=== PATIENT | male | born 1940 | race Caucasian/White ===

== ENCOUNTER 2017-07-15 08:23 | Outpatient (RCR) | payer MEDICARE, BC ==
--- NOTE | 2017-05-01 14:35 | RAD ONC CONSULTATION ---
EVENT DATE: April 27, 2017 PRIMARY SITE AND HISTOPATHOLOGY Poorly differentiated adenocarcinoma of the prostate, Bowie 6, Bowie 7, Cornell 8 and Bowie 9 carcinoma all present. Tumor occupying seven of 12 core biopsy specimens. Predominant grade is Bowie 9 occupying at least 40% of the core biopsies. Tumor was in both right and left lobe. See below. Pre- biopsy PSA of 3.9 ng/mL. Biopsy date April 08, 2017. Stage T2c (visible asymmetry of the right seminal vesical on my review of the films, as well as a palpable induration suspicious for malignancy on rectal exam involving the right and left lobe greater than 50%. HISTORY OF PRESENT ILLNESS This is a 76-year-old gentleman who is seen accompanied by his spouse for discussion of therapeutic options for recently diagnosed prostate carcinoma. Patient was referred to the office by Dr. Shea for discussion today. According to the patient there is family history of prostate carcinoma. he has been monitoring his PSA with his providers for the last two years, as well as undergoing screening events for prostate cancer. He has noticed a change in voiding patterns with increased urinary urgency as well as occasional double voiding. During the oast six months he has noticed some mild pain at the beginning of urination. He was placed on a trial of antibiotics by Dr. Shea with no improvement. He typically voids q.2 hours during the day. Patient has mild lower back pain, but nothing persistent. Prior to this appointment he had a bone scan at [facility] which I reviewed today which was negative. Minor arthritic changes at L5 and the C-spine. CT of the abdomen and pelvis was obtained on April 20, 2017. No definitive lymphadenopathy and liver was unremarkable. No hydronephrosis. Incidental 1 mm nonobstructing calculus was noted in the lower pole of the right kidney. The prostate gland appeared moderately enlarged and irregular. Seminal vesicals were prominent. On my review of the films the right seminal vesical was more prominent than the left side. On rib films he had evidence of old bilateral rib fractures which were benign appearing. The patient is seen for discussion of therapeutic options. PAST MEDICAL HISTORY 1. COPD. 2. History of seizure disorder. 3. History of hypercholesterol. PAST SURGICAL HISTORY 1. Bilateral shoulder surgical repairs. 2. Prior back surgery. MEDICATIONS The patient was uncertain of his medications and we will call Pharmacy for a detailed list today. ALLERGIES None. SOCIAL HISTORY Patient is , accompanied by his . Nonsmoker. Does not drinking. Has a son age 56 and daughter age 53. FAMILY HISTORY Strong family history of coronary artery disease with his father dying of an CT at age 47. His mother lived to age 84. REVIEW OF SYSTEMS A 14-point review of systems notable for occasional dry eyes. He does have some urinary urgency and frequency with an AUA symptom score of 12. Nocturnal times three, sometimes four. He does recall that he has had a catheterization procedure in the past in the Urinary office. Mild decrease in energy. No significant chest pain. At times he has been told he had high blood pressure. Mild lower back pain at times. He does have some impairment of his memory at times and occasional dizziness. He states that he has seizures about once a month that last 30-60 seconds. He se[s Dr. Mcnamara in [place]. He has seen doctors at the [facility] in [place] about the seizure disorder in the past. 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 The patient is on CPAP for the last two to three years. PHYSICAL EXAMINATION GENERAL: A pleasant 76-year-old male of medium build. VITAL SIGNS: Weight 178. BP 120/76, O2 sat 96% on room air, respirations 14, pulse 61. LUNGS: Clear to auscultation bilaterally. HEART: Sounds regular with no appreciable murmur. ABDOMEN: Soft with no organomegaly. RECTAL: Exam was performed and the prostate is enlarged with palpable induration involving the left lobe as well as the right lobe of the gland. There is palpable induration and asymmetry of the gland which is highly irregular. EXTREMITIES: Reveal no edema or cyanosis. NEUROLOGIC: Exam is grossly intact. IMPRESSION This is a 76-year-old gentleman with a relatively low prostatic specific antigen , however, aa palpable abnormal prostate gland with high grade prostate malignancy bilaterally on ultrasound biopsies. The combination is associated with very undifferentiated malignancies which tend to produce the PSA at a lower rate as the cells are very immature. In running the typical nomogram from [facility] computer site, the probability of extracapsular extension is 67% for the features listed with the patient's malignancy, organ-confined disease 30%, lymph node involvement 11%, seminal vesical invasion 10%. We discussed multiple treatment options. He specifically wished to discuss the radiation options in terms of external beam radiotherapy and/or brachytherapy. I told the patient he would not be a candidate for brachytherapy alone, however , we have performed brachytherapy as part of a boost treatment for the Cornell 7 , 8, 9 and 10. Patients would benefit from androgen deprivation therapy concurrently with radiotherapy to maximize the probability of sustained tumor control. In randomized data from [place], the probability of sustained tumor control would be 75%. In larger series in the [place] to cause specific survival should be approximately 81%. In the ASCENDE-RT trial patient's with high risk disease were treated with a minimum of 12 months of ADT and radiotherapy which included external beam therapy plus brachytherapy. Six and a half relapse rate survival is 89%. RECOMMENDATIONS 1. I will phone in a prescription for Bicalutamide. Patient is instructed to take 50 mg q.day for 30 days. 2. Proceed with Lupron therapy at the end of this week. Patient hopes to go hunting next week so we will check later today with Dr. Shea's office to see if we can get the Lupron started earlier. 3. Proceed with targeting CT simulation on Wednesday of this week. 4. Start external beam radiotherapy in approximately four weeks. Proceed to radiation dose of 5000 to 5500 cGy. 5. Reassess at that juncture for brachytherapy option versus external beam radiation therapy boost. Both options would be category one recommendations. I outlined the treatment plan with the patient and his spouse. We reviewed potential acute late side effects and therapeutic alternatives. He would like to proceed with the above recommendation. All questions were answered to the his satisfaction over 90 minute consultation today. Baseline pretreatment PSA will be obtained as well in the morning. Thank you for the referral and opportunity to discuss options with Mr. Sharma and his spouse today. ILEANA
[~2017-07-15 08:23] MED LIST: ALE70 PO; ALF10 PO; ASA; ASC500 PO; ASCO-191 PO; ASCO-599 PO; ASP325 PO; ASPI-715 PO; ATOR20TA22 PO; B.AN1CAP2 PO; BEN20 PO; BENA1TAB48 PO; CALC500T76 PO; CEP500 PO; CHOL100052 PO; CITA-137 PO; CLO75 PO; DEXL60CA6 PO; DOCU-416 PO; DUT0.5 PO; ERG400 PO; ERGO400T9 PO; EZE10 PO; FAMO20TA28 PO; FES4PT PO; FINA5TAB67 PO; FLUT16SP19 NS; GLUC100026 PO; GLUC500C29 PO; GLUC750T10 PO; HYDR-389 PO; IBUP-1671 PO; IBUP800T37 PO; LACT1CAP6 PO; LAMO200T46 PO; LAMO300T2 PO; LEVO-85 PO; LOSA100T67 PO; LOSA50TA72 PO; MECL-111 PO; METH-271 PO; MIR; MULT-1335 PO; MULT1CAP41 PO; MULT1CAP59 PO; MUSCLE RELAX; NAPR-1043 PO; NAPR220C12 PO; NOR5/325 PO; OFLO5DRO45 OT; OLM20 PO; OMEP-153 PO; OMEP-218 PO; OXCA150T45 PO; OXCA150T47 PO; OXY10 PO; OXY5 PO; OXYC-865 PO; PANT40TA65 PO; PER PO; PERCOSET PO; PHEN200T32 PO; RAN150 PO; RANI-318 PO; RANI-324 PO; RIS35 PO; TAMS0.4C70 PO; [UNRECOGNIZED DRUG - CODE] PO; [UNRECOGNIZED DRUG - OTHER] IM ONLY ONE
[2017-07-16] MEDS ORDERED: CAR6.25 PO (08:51)
[2017-07-16] MEDS ORDERED: AMOX-559 PO (10:07)
== END 2017-07-25 ==
LOC: RAON 08:23
PROVIDERS: ATTEND Radiology Radiation Oncology
DX: Z51.0 Encounter for antineoplastic radiation therapy (principal); C61 Malignant neoplasm of prostate; K22.70 Barrett's esophagus without dysplasia; E78.5 Hyperlipidemia, unspecified; I10 Essential (primary) hypertension; M85.80 Other specified disorders of bone density and structure, unspecified site; G47.30 Sleep apnea, unspecified; Z79.899 Other long term (current) drug therapy; R39.15 Urgency of urination
CPT/HCPCS: 77280; 77290; 77300; 77301; 77336; 77338; 77385; 96372; G0463; 36415; 80175; 82040; 82247; 82310; 82374; 82435; 82565; 82947; 84075; 84132; 84153; 84155; 84295; 84450; 84460; 84520; 85025; 99203; J9217

== ENCOUNTER 2017-08-09 10:53 | Emergency (ER) | payer MEDICARE, BC ==
[~2017-08-09] VITALS: Ht 175.3 cm; Wt 83.2 kg
[~2017-08-09 10:53] MED LIST changes: +AMOX-559 PO; +CAR6.25 PO; -[UNRECOGNIZED DRUG - OTHER] IM ONLY ONE
[2017-08-09] MEDS ORDERED: NS(*) 0.9% 1000 ML BAG 1,000 ML IV ONE (11:12)
[2017-08-09] MEDS ORDERED: ONDANSETRON 4 MG/2 ML VIAL IVP ONE (11:15)
--- NOTE | 2017-08-09 11:20 | ER Report ---
History and Physical Time Seen By MD: 11:00 Hx. of Stated Complaint: PT TRIPPED AND FELL WHILE CARRYING A MITER SAW ON WEDNESDAY HPI/ROS CHIEF COMPLAINT: Fall, multiple injuries HISTORY OF PRESENT ILLNESS: Patient is a 77-year-old male accompanied by his , who presents the ED with complaint of fall that occurred 2 nights ago. He states that he was carrying a 12 inch miter saw out from a pole barn when it was very dark and states that he stumbled and eventually fell injuring his face , left chest, left hand. He states that the worst pain seems to be in his left chest area. He states he has pain with movements and deep breathing. He denies any cough or fever. He has not noted any shortness of breath. He also states that he has had some bruising and swelling around his left lip and left nose area. He has pain in these areas are pushed. He has not noted much headache but has had some dizziness. He states that he has had dizziness for a few months and relates this to the multiple medications that he is taking. He does not believe the dizziness caused his fall 2 nights ago. He states that he didn't have a laceration of his left middle finger but has just been applying Band- Aids to his left middle finger and left index finger. He states that since his injuries he has had nausea, vomiting, diarrhea for the past 2 days now. He states that he has been trying to stay well-hydrated but has not wanted to eat or drink much. He denies any abdominal pain. REVIEW OF SYSTEMS: Constitutional: No fever, no chills. Eyes: No discharge. ENT: No sore throat. Cardiovascular: See history of present illness. No palpitations. Respiratory: See history of present illness. Gastrointestinal: See history of present illness. No abdominal pain. Genitourinary: No hematuria. Musculoskeletal: See history of present illness. Skin: No rashes. Neurological: See history of present illness. No numbness, tingling, vision changes. Allergies: Coded Allergies: No Known Drug Allergies (Unverified , 08/09/17) Home Meds Active Scripts Fluticasone Prop 50 Mcg Ns (FLONASE 50 MCG NS) 16 Gm Ismay.susp, 2 SPRAYS NS QDAY, #1 BOT 2 Refills Prov:JOSE LEDBETTER DNP, [employer]IES[employer] PILE DRIVER OPERATOR-BC 08/02/17 Carvedilol (CARVEDILOL) 6.25 Mg Tab, 1 TAB PO BID, #60 TAB 0 Refills Prov:JOSE LEDBETTER DNP [facility] 07/16/17 Tamsulosin Hcl (TAMSULOSIN HCL) 0.4 Mg Cap.er.24h, 0.4 MG PO BID for 90 Days, # 180 CAP 3 Refills Prov:CORINNE BELLO DIESEL PILE DRIVER OPERATOR-, ONC 06/28/17 Atorvastatin Calcium (LIPITOR) 20 Mg Tablet, 1 TAB PO QDAY, #90 TAB 4 Refills Prov:JOSE LEDBETTER DNP [facility] 05/26/17 Reported Medications Ranitidine Hcl (RANITIDINE HCL) 150 Mg Tablet, 150 MG PO QDAY 06/22/17 Cholecalciferol (Vitamin D3) (VITAMIN D) Unknown Strength Tablet, PO 01/15/17 Ascorbic Acid (VITAMIN C) 1,000 Mg Tablet, 1 TAB PO QDAY 01/15/17 Lamotrigine (LAMICTAL) 200 Mg Tablet, 400 MG PO DAILY 11/04/15 Citalopram Hydrobromide (CITALOPRAM HBR) 10 Mg Tablet, 10 MG PO QDAY, #5 TAB TAKE 1 TABLET BY MOUTH EVERY DAY 11/22/13 Discontinued Reported Medications Multivitamin (MULTIVITAMINS) 1 Each Capsule, 1 EACH PO QDAY, CAPSULE 01/15/17 Naproxen Sodium (ALEVE) 220 Mg Capsule, 220 MG PO TID Y for PAIN, CAPSULE 01/15/17 Ranitidine Hcl (ZANTAC) 150 Mg Tablet, 150 MG PO DAILY, TAB 11/04/15 Losartan Potassium (LOSARTAN POTASSIUM) 100 Mg Tablet, 100 MG PO QDAY 11/22/13 Discontinued Scripts Losartan Potassium (LOSARTAN POTASSIUM) 50 Mg Tablet, 2 TAB PO BID for 90 Days, #90 TAB 0 Refills Prov:JOSE LEDBETTER DNP [facility] 08/02/17 Amoxicillin/Pot Clav 875-125 Mg Tab (AUGMENTIN 875-125 TABLET) 1 Each Tablet, 1 TAB PO Q12H for 10 Days, #20 TAB 0 Refills Prov:JOSE LEDBETTER DNP [facility] 07/16/17 Reviewed Nurses Notes: Yes Old Medical Records Reviewed: Yes Hx Smoking: No Smoking Status: Never Smoker Hx Substance Use Disorder: No Hx Alcohol Use: Yes Constitutional Vital Sign - Last 24 Hours 08/09/17 08/09/17 08/09/17 08/09/17 10:58 11:02 11:30 11:38 Temp 97.5 Pulse 58 57 Resp 14 B/P (MAP) 136/78 136/78 (97) 118/72 (87) Pulse Ox 97 92 O2 Delivery Room Air Physical Exam General Appearance: The patient is alert, has no immediate need for airway protection and no signs of toxicity. Patient appears to be no acute distress. Eyes: Pupils equal and round no pallor or injection. EOMs are full bilaterally. ENT, Mouth: Mucous membranes are moist. There is small areas of ecchymosis noted on the left lip and left nostril area. There is some abrasions in these areas as well. There is a small healing laceration of the left upper inner lip. Respiratory: There are no retractions, lungs are clear to auscultation. There is pain with palpation of the left mid anterior rib areas. No swelling, ecchymosis, rash appreciated. Cardiovascular: Regular rate and rhythm. Gastrointestinal: Abdomen is soft and non tender, no masses, bowel sounds normal. Neurological: Cranial nerves II-12 intact. Normal Romberg. Normal finger to nose test bilaterally. Skin: Warm and dry, no rashes. Musculoskeletal: Neck is supple non tender. There is pain with palpation of the distal left 2nd and 3rd fingers. There is a superficial laceration of the left 2nd distal finger measuring 1 cm. There is another laceration of the left 3rd finger distally measuring 2 cm. There is ecchymosis appreciated in both of these areas. Pulses 2+ with normal capillary refill. Sensation. DIFFERENTIAL DIAGNOSIS: After history and physical exam differential diagnosis was considered for chest pain including but not limited to myocardial ischemia, pericarditis pulmonary embolus, chest wall pain, pleural inflammation and pulmonary infectious causes. Medical Decision Making Data Points Result Diagram: 08/09/17 1127 08/09/17 1127 Laboratory Hematology Test 08/09/17 11:13 08/09/17 11:27 Urine Color Minerva Urine Clarity Slightly-cloudy Urine pH 5.0 pH (4.8-9.5) Urine Specific [place] 1.032 Urine Protein 30 mg/dL (NEGATIVE) Urine Glucose (UA) Negative mg/dL (NEGATIVE) Urine Ketones Negative mg/dL (NEGATIVE) Urine Blood Negative (NEGATIVE) Urine Nitrite Negative (NEGATIVE) Urine Bilirubin Negative (NEGATIVE) Urine Urobilinogen 2.0 mg/dL (0.2-1.9) Urine Leukocyte Esterase Negative (NEGATIVE) Urine RBC 1 /HPF (0-2/HPF) Urine WBC 3 /HPF (0-5/HPF) Urine Squamous Epithelial Cells Few /LPF (</=FEW) Urine Calcium Oxalate Crystals Moderate /HPF (NONE) Urine Bacteria Negative /HPF (NONE-FEW) Urine Hyaline Casts Many /LPF (NONE-FEW) Urine Mucus Few /HPF (NONE-FEW) Red Blood Count 4.52 M/uL (4.00-5.60) Mean Corpuscular Volume 92.6 fL (80.0-96.0) Mean Corpuscular Hemoglobin 32.4 pg (26.0-33.0) Mean Corpuscular Hemoglobin Concent 35.0 g/dL (32.0-36.0) Red Cell Distribution Width 14.4 % (11.5-14.5) Mean Platelet Volume 7.7 fL (7.2-11.1) Neutrophils (%) (Auto) 84.3 % (39.4-72.5) Lymphocytes (%) (Auto) 5.9 % (17.6-49.6) Monocytes (%) (Auto) 8.0 % (4.1-12.4) Eosinophils (%) (Auto) 1.4 % (0.4-6.7) Basophils (%) (Auto) 0.4 % (0.3-1.4) Nucleated RBC Relative Count (auto) 0.0 /100WBC Neutrophils # (Auto) 3.9 K/uL (2.0-7.4) Lymphocytes # (Auto) 0.3 K/uL (1.3-3.6) Monocytes # (Auto) 0.4 K/uL (0.3-1.0) Eosinophils # (Auto) 0.1 K/uL (0.0-0.5) Basophils # (Auto) 0.0 K/uL (0.0-0.1) Nucleated RBC Absolute Count (auto) 0.00 K/uL Sodium Level 139 mmol/L (137-145) Potassium Level 4.0 mmol/L (3.5-5.0) Chloride Level 104 mmol/L (98-107) Carbon Dioxide Level 24 mmol/L (22-30) Blood Urea Nitrogen 24 mg/dl (9-21) Creatinine 1.10 mg/dl (0.66-1.25) Glomerular Filtration Rate Calc > 60.0 Random Glucose 92 mg/dl (75-110) Calcium Level 9.1 mg/dl (8.4-10.2) Total Bilirubin 1.6 mg/dl (0.2-1.3) Aspartate Amino Transf (AST/SGOT) 29 U/L (0-35) Alanine Aminotransferase (ALT/SGPT) 31 U/L (0-56) Alkaline Phosphatase 81 U/L (0-126) Troponin I < 0.012 ng/ml Total Protein 6.9 gm/dl (6.3-8.2) Albumin 3.9 g/dl (3.5-5.0) Chemistry Test 08/09/17 11:13 08/09/17 11:27 Urine Color Minerva Urine Clarity Slightly-cloudy Urine pH 5.0 pH (4.8-9.5) Urine Specific [place] 1.032 Urine Protein 30 mg/dL (NEGATIVE) Urine Glucose (UA) Negative mg/dL (NEGATIVE) Urine Ketones Negative mg/dL (NEGATIVE) Urine Blood Negative (NEGATIVE) Urine Nitrite Negative (NEGATIVE) Urine Bilirubin Negative (NEGATIVE) Urine Urobilinogen 2.0 mg/dL (0.2-1.9) Urine Leukocyte Esterase Negative (NEGATIVE) Urine RBC 1 /HPF (0-2/HPF) Urine WBC 3 /HPF (0-5/HPF) Urine Squamous Epithelial Cells Few /LPF (</=FEW) Urine Calcium Oxalate Crystals Moderate /HPF (NONE) Urine Bacteria Negative /HPF (NONE-FEW) Urine Hyaline Casts Many /LPF (NONE-FEW) Urine Mucus Few /HPF (NONE-FEW) White Blood Count 4.6 k/uL (4.5-11.0) Red Blood Count 4.52 M/uL (4.00-5.60) Hemoglobin 14.6 g/dL (14.0-18.0) Hematocrit 41.9 % (42.0-52.0) Mean Corpuscular Volume 92.6 fL (80.0-96.0) Mean Corpuscular Hemoglobin 32.4 pg (26.0-33.0) Mean Corpuscular Hemoglobin Concent 35.0 g/dL (32.0-36.0) Red Cell Distribution Width 14.4 % (11.5-14.5) Platelet Count 171 K/uL (150-450) Mean Platelet Volume 7.7 fL (7.2-11.1) Neutrophils (%) (Auto) 84.3 % (39.4-72.5) Lymphocytes (%) (Auto) 5.9 % (17.6-49.6) Monocytes (%) (Auto) 8.0 % (4.1-12.4) Eosinophils (%) (Auto) 1.4 % (0.4-6.7) Basophils (%) (Auto) 0.4 % (0.3-1.4) Nucleated RBC Relative Count (auto) 0.0 /100WBC Neutrophils # (Auto) 3.9 K/uL (2.0-7.4) Lymphocytes # (Auto) 0.3 K/uL (1.3-3.6) Monocytes # (Auto) 0.4 K/uL (0.3-1.0) Eosinophils # (Auto) 0.1 K/uL (0.0-0.5) Basophils # (Auto) 0.0 K/uL (0.0-0.1) Nucleated RBC Absolute Count (auto) 0.00 K/uL Glomerular Filtration Rate Calc > 60.0 Calcium Level 9.1 mg/dl (8.4-10.2) Total Bilirubin 1.6 mg/dl (0.2-1.3) Aspartate Amino Transf (AST/SGOT) 29 U/L (0-35) Alanine Aminotransferase (ALT/SGPT) 31 U/L (0-56) Alkaline Phosphatase 81 U/L (0-126) Troponin I < 0.012 ng/ml Total Protein 6.9 gm/dl (6.3-8.2) Albumin 3.9 g/dl (3.5-5.0) Urinalysis Test 08/09/17 11:13 Urine Color Minerva Urine Clarity Slightly-cloudy Urine pH 5.0 pH (4.8-9.5) Urine Specific [place] 1.032 Urine Protein 30 mg/dL (NEGATIVE) Urine Glucose (UA) Negative mg/dL (NEGATIVE) Urine Ketones Negative mg/dL (NEGATIVE) Urine Blood Negative (NEGATIVE) Urine Nitrite Negative (NEGATIVE) Urine Bilirubin Negative (NEGATIVE) Urine Urobilinogen 2.0 mg/dL (0.2-1.9) Urine Leukocyte Esterase Negative (NEGATIVE) Urine RBC 1 /HPF (0-2/HPF) Urine WBC 3 /HPF (0-5/HPF) Urine Squamous Epithelial Cells Few /LPF (</=FEW) Urine Calcium Oxalate Crystals Moderate /HPF (NONE) Urine Bacteria Negative /HPF (NONE-FEW) Urine Hyaline Casts Many /LPF (NONE-FEW) Urine Mucus Few /HPF (NONE-FEW) EKG/Imaging EKG Interpretation 12 lead EKG: Rhythm: Sinus bradycardia with first-degree AV block, rate 54 bpm [place]: normal QRS: normal ST segments: No acute ST changes identified. T-wave flattening in V1. Monitor Interpretation: Sinus Bradycardia Imaging CXR: IMPRESSION: 1. Left basilar scarring similar to the prior study Old left-sided rib fractures. Report Dictated By: Shania Sexton MD at 08/09/2017 12:36 PM Report E-Signed By: Shania Sexton MD at 08/09/2017 12:37 PM Left Rib Xrays: IMPRESSION: 1. Numerous old appearing left-sided rib fractures with no acute appearing rib fractures identified at this time Left basilar scarring similar to the prior chest Report Dictated By: Shania Sexton MD at 08/09/2017 12:33 PM Report E-Signed By: Shania Sexton MD at 08/09/2017 12:36 PM Left Hand Xrays: IMPRESSION: 1. Degenerative changes as described with no evidence of acute fracture- dislocation involving the left hand Report Dictated By: Shania Sexton MD at 08/09/2017 12:29 PM Report E-Signed By: Shania Sexton MD at 08/09/2017 12:[address] Head: IMPRESSION: 1. Age related changes as described above. 2. No evidence of acute intracranial pathology. Report Dictated By: Jacques Staley MD at 08/09/2017 12:53 PM Report E-Signed By: Jacques Staley MD at 08/09/2017 12:[address] C-Spine: IMPRESSION: 1. Age related changes as described above. 2. No evidence of acute bony abnormality involving the cervical spine. Report Dictated By: Jacques Staley MD at 08/09/2017 12:56 PM Report E-Signed By: Jacques Staley MD at 08/09/2017 12:[address] Facial Bones: IMPRESSION: 1. No evidence of acute traumatic injury involving the facial bones. Report Dictated By: Jacques Staley MD at 08/09/2017 12:59 PM Report E-Signed By: Jacques Staley MD at 08/09/2017 1:04 PM ED Course/Re-evaluation Clinical Indication for ER IV: Hydration ED Course Patient will be given 1 L normal saline bolus and 4 mg IV Zofran for his nausea and vomiting. Will obtain labs, EKG, chest x-ray, left rib x-rays, CT head and C -spine, CT facial bones, left hand x-rays. Patient states that he is up-to-date with his tetanus shot. 08/09/2017 1:18:49 pm - discussed all labs, EKG, imaging with patient. Everything does appear to be essentially normal. He has no acute fractures noted. He does have some old left for fractures appreciated. He likely does have left rib contusion as well as facial contusion noted. He has left hand lacerations and contusions as well. Bacitracin and bandages were supplied to his face and left hand abrasions. Will prescribe him some pain medication and nausea medication. He did have episodes of nausea, vomiting, diarrhea which likely was related to some gastroenteritis. He believes that this is started to calm down now. Decision to Disposition Date: Aug 09, 2017 Decision to Disposition Time: 13:18 Depart Departure Latest Vital Signs Vital Signs Date Time Temp Pulse Resp B/P (MAP) Pulse Ox O2 Delivery O2 Flow Rate FiO2 08/09/17 11:38 57 92 08/09/17 11:30 118/72 (87) 08/09/17 10:58 97.5 14 Room Air Impression: Primary Impression: Head injury Additional Impressions: Facial contusion Facial abrasion Contusion of left hand Abrasion of left hand Contusion of rib on left side Nausea vomiting and diarrhea Condition: Improved Disposition: HOME OR SELF-CARE Referrals: JOSE LEDBETTER DNP, DIES[employer] PILE DRIVER OPERATOR-BC (PCP) New Scripts Ondansetron (ZOFRAN ODT) 4 Mg Tab.rapdis 4 MG PO Q6H Y for NAUSEA/VOMITING, #10 TAB.HUNTER Prov: FREIDA LUCAS PA-C 08/09/17 Tramadol Hcl (TRAMADOL HCL) 50 Mg Tablet 50 MG PO Q4-6H, #10 TAB Prov: FREIDA LUCAS PA-C 08/09/17 Patient Instructions: Abrasion (ED), Acute Diarrhea (ED), Acute Nausea and Vomiting (ED), Facial Contusion (ED), Head Injury (ED), Rib Contusion (ED) Additional Instructions: Stay well-hydrated. Monitor for signs and symptoms of worsening head injury including worsening headache, nausea, vomiting, numbness, tingling, vision changes, dizziness. Monitor for signs and symptoms of infection including redness, swelling, discharge, fever. Follow-up with your primary care provider in 2-3 days. If having any worsening or concerning symptoms may return to the emergency department. Problem Qualifiers Primary Impression: Head injury Encounter type: initial encounter Qualified Codes: S09.90XA - Unspecified injury of head, initial encounter Additional Impressions: Facial contusion Encounter type: initial encounter Qualified Codes: S00.83XA - Contusion of other part of head, initial encounter Facial abrasion Encounter type: initial encounter Qualified Codes: S00.81XA - Abrasion of other part of head, initial encounter Contusion of left hand Encounter type: initial encounter Qualified Codes: S60.222A - Contusion of left hand, initial encounter Abrasion of left hand Encounter type: initial encounter Qualified Codes: S60.512A - Abrasion of left hand, initial encounter Contusion of rib on left side Encounter type: initial encounter Qualified Codes: S20.212A - Contusion of left front wall of thorax, initial encounter FREIDA LUCAS PA-C Aug 09, 2017 11:20
[2017-08-09 11:30] VITALS: BP 118/72
[2017-08-09 11:40] LABS: PLATELET COUNT, AUTOMATED 171 K/uL (150-450)
[2017-08-09] MEDS ORDERED: MORPHINE 2 MG/ML SYR IVP ONE (11:45)
--- NOTE | 2017-08-09 11:49 | EKG ---
FACILITY: [facility] [place] PATIENT NAME: GET CALLEJAS : [id number] MR: [id number] V: [id number] EXAM DATE: ORDERING PHYSICIAN: FREIDA LUCAS TECHNOLOGIST: JARRET Lopez Reason : FALL Blood Pressure : / mmHG Vent. Rate : 054 BPM Atrial Rate : 054 BPM P-R Int : 258 ms QRS Dur : 082 ms QT Int : 438 ms P-R-T Axes : 051 -24 049 degrees QTc Int : 415 ms Sinus bradycardia with 1st degree AV block Otherwise normal ECG When compared with ECG of 08-APR-2017 06:34, Criteria for Septal infarct are no longer present Nonspecific T wave abnormality now evident in Lateral leads Confirmed by RASHID AGUAYO ([id number]) on 08/09/2017 2:58:06 PM Referred By: LINH Confirmed By:RASHID AGUAYO
--- NOTE | 2017-08-09 12:37 | RADIOLOGY IMAGING REPORT ---
[place] [facility] [place] NAME: Ricardo Sharma : 1940 MR: [id number] V: [id number] EXAM DATE: ORDERING PHYSICIAN: FREIDA LUCAS TECHNOLOGIST: Location: [facility] Patient: Ricardo Sharma : 1940 Visit/Account:[id number] Date of Sevice: 08/09/2017 Exam type: HAND COMPLETE LEFT History: Fell off ladder Wednesday swollen third and fourth digits of left hand Comparison: None. Findings: A metallic ring surrounds the midshaft of the proximal phalanx of the left fourth finger. There is n o evidence of acute fracture dislocation involving the left hand. Incidentally noted are mild degene rative changes involving interphalangeal joints and moderate degenerative changes at the first carpom etacarpal articulation. IMPRESSION: 1. Degenerative changes as described with no evidence of acute fracture-dislocation involving the le ft hand Report Dictated By: Shania Sexton MD at 08/09/2017 12:29 PM Report E-Signed By: Shania Sexton MD at 08/09/2017 12:32 PM WSN:[email or web address]
--- NOTE | 2017-08-09 12:40 | RADIOLOGY IMAGING REPORT ---
FACILITY: [facility] PATIENT NAME: Ricardo Sharma : 1940 MR: [id number] V: [id number] EXAM DATE: ORDERING PHYSICIAN: FREIDA LUCAS TECHNOLOGIST: Location: [facility] Patient: Ricardo Sharma : 1940 Visit/Account:[id number] Date of Sevice: 08/09/2017 Exam type: RIBS LEFT History: left rib pain/injury Comparison: None. Findings: There are numerous old appearing left-sided rib fractures with no acute appearing fractures identifie d within the ribs at this time. There is a small amount of left basilar scarring similar to prior ch est from September 28, 2016. No evidence of a pneumothorax or pleural effusion IMPRESSION: 1. Numerous old appearing left-sided rib fractures with no acute appearing rib fractures identified at this time Left basilar scarring similar to the prior chest Report Dictated By: Shania Sexton MD at 08/09/2017 12:33 PM Report E-Signed By: hSania Sexton MD at 08/09/2017 12:36 PM WSN:[email or web address]
--- NOTE | 2017-08-09 12:41 | RADIOLOGY IMAGING REPORT ---
FACILITY: [facility] PATIENT NAME: Ricardo Sharma : 1940 MR: [id number] V: [id number] EXAM DATE: ORDERING PHYSICIAN: FREIDA LUCAS TECHNOLOGIST: Location: [facility] Patient: Ricardo Sharma : 1940 Visit/Account:[id number] Date of Sevice: 08/09/2017 Exam type: CHEST PA AND LAT History: left rib pain/injury Comparison: September 28, 2016. Findings: The lungs are free of acute effusions, infiltrates or edema. There is a small amount left basilar sc arring similar to the prior study. No evidence of a pneumothorax or pneumomediastinum. There are nu merous old left-sided rib fractures. The cardiac silhouette is normal in size. There are moderate s pondylotic changes of the thoracic spine IMPRESSION: 1. Left basilar scarring similar to the prior study Old left-sided rib fractures. Report Dictated By: Shania Sexton MD at 08/09/2017 12:36 PM Report E-Signed By: Shania Sexton MD at 08/09/2017 12:37 PM WSN:[email or web address]
[2017-08-09] MEDS ORDERED: BACITRACIN OINT 0.9 GM PKT TP ONE (13:00)
--- NOTE | 2017-08-09 13:01 | RADIOLOGY IMAGING REPORT ---
[place] [facility] [place] Ricardo Sh[place] : 1940 MR: [id number] V: [id number] EXAM DATE: ORDERING PHYSICIAN: FREIDA LUCAS TECHNOLOGIST: Location: [facility] Patient: Ricardo Sharma : 1940 Visit/Account:[id number] Date of Sevice: 08/09/[address] scan without contrast COMPARISONS: September 28, 2016 ADDITIONAL PERTINENT HISTORY: Fall with head and neck injury. TECHNIQUE: Multiple axial images were obtained from the skull base to the vertex without IV contrast . One of the following dose optimization techniques was utilized in the performance of this exam: Aut omated exposure control; adjustment of the mA and/or kV according to the patient's size; or use of an iterative reconstruction technique. Specific details can be referenced in the facility's radiology CT exam operational policy. FINDINGS: Midline shift: Negative Ventricles: Mild enlargement of the lateral and third ventricles. Otherwise negative Brain parenchyma: Patchy hypoattenuation within the periventricular and subcortical white matter, no nspecific but likely representing small vessel ischemic change on a chronic basis. Extra-axial spaces: Mild cerebral atrophy. Intracranial vasculature: Cavernous internal carotid and distal vertebral artery calcifications. Oth erwise negative Osseous structures: Negative Paranasal sinuses and mastoid air cells: Negative Surrounding soft tissues and orbits: Negative IMPRESSION: 1. Age related changes as described above. 2. No evidence of acute intracranial pathology. Report Dictated By: Jacques Staley MD at 08/09/2017 12:53 PM Report E-Signed By: Jacques Staely MD at 08/09/2017 12:56 PM WSN:[id number]
--- NOTE | 2017-08-09 13:02 | RADIOLOGY IMAGING REPORT ---
FACILITY: [facility] [place] PATIENT NAME: Ricardo Sharma : 1940 MR: [id number] V: [id number] EXAM DATE: ORDERING PHYSICIAN: FREIDA LUCAS TECHNOLOGIST: Location: [facility] Patient: Ricardo Sharma : 1940 Visit/Account:[id number] Date of Sevice: 08/09/2017 C-SPINE W/O CONTRAST COMPARISONS: November 25, 2013 ADDITIONAL PERTINENT HISTORY: Fall with injury. TECHNIQUE: Multiple axial images were obtained from the skull base through the upper thoracic spine with coronal and sagittal reformatted images obtained without IV contrast. One of the following dose optimization techniques was utilized in the performance of this exam: Automated exposure control; adj ustment of the mA and/or kV according to the patient's size; or use of an iterative reconstruction t echnique. Specific details can be referenced in the facility's radiology CT exam operational policy. FINDINGS. Vertebral body heights and alignment: Negative. Vertebral bodies: Mild facet hypertrophic changes at multiple levels. No bony fractures. Disc spaces: None. Cranial cervical junction: Negative. Cervical thoracic junction: Negative. Surrounding soft tissues: Negative. Lung apices: Negative. IMPRESSION: 1. Age related changes as described above. 2. No evidence of acute bony abnormality involving the cervical spine. Report Dictated By: Jacques Staley MD at 08/09/2017 12:56 PM Report E-Signed By: Jacques Staley MD at 08/09/2017 12:59 PM WSN:[id number]
--- NOTE | 2017-08-09 13:07 | RADIOLOGY IMAGING REPORT ---
FACILITY: [facility] PATIENT NAME: Ricardo Sharma : 1940 MR: [id number] V: [id number] EXAM DATE: ORDERING PHYSICIAN: FREIDA LUCAS TECHNOLOGIST: Location: [facility] Patient: Ricardo Sharma : 1940 Visit/Account:[id number] Date of Sevice: 08/09/2017 CT of the face without contrast. Comparison: None Additional pertinent history: Fall with head and neck injury TECHNIQUE: Multiple axial images were obtained through the facial bones without IV contrast. Mustafa l and sagittal reformatted images were obtained off the axial source data. One of the following dose optimization techniques was utilized in the performance of this exam: Automated exposure control; ad justment of the mA and/or kV according to the patient's size; or use of an iterative reconstruction technique. Specific details can be referenced in the facility's radiology CT exam operational policy . FINDINGS: Zygomas/zygomatic arches:Negative Sage of the orbits: Negative Orbital floors: Negative Sage of the paranasal sinuses: Negative Pterygoid plates: Negative Nasal bones/nasal septum: Negative Maxilla: Negative Mandible: Negative Orbits: Negative Paranasal sinuses: Mild mucosal thickening involving both frontal sinuses as well as the ethmoid air cells. Surrounding soft tissues: Negative IMPRESSION: 1. No evidence of acute traumatic injury involving the facial bones. Report Dictated By: Jacques Staley MD at 08/09/2017 12:59 PM Report E-Signed By: Jacques Staley MD at 08/09/2017 1:04 PM WSN:[id number]
[2017-08-09] MEDS ORDERED: ONDA4TAB PO (13:22)
[2017-08-09] MEDS ORDERED: TRAM-420 PO (13:22)
== END 2017-08-09 13:34 | disposition home or self-care (01) ==
LOC: ER 10:58
DX: S09.90XA Unspecified injury of head, initial encounter (principal); S00.83XA Contusion of other part of head, initial encounter; S00.81XA Abrasion of other part of head, initial encounter; S60.222A Contusion of left hand, initial encounter; S60.512A Abrasion of left hand, initial encounter; S20.212A Contusion of left front wall of thorax, initial encounter; W01.10XA Fall on same level from slipping, tripping and stumbling with subsequent striking against unspecified object, initial encounter
CPT/HCPCS: 70450; 70486; 71046; 71100; 72125; 73130; 81001; 84484; 85025; 93005; 99284; A9270; J2270; J2405; J7030; 82040; 82247; 82310; 82374; 82435; 82565; 82947; 84075; 84132; 84155; 84295; 84450; 84460; 84520; 96361; 96374; 96375; C9399

== ENCOUNTER → 2017-08-13 | Outpatient (CLI) | payer MEDICARE, BC ==
[~2017-08-13] MED LIST changes: +ONDA4TAB PO; +TRAM-420 PO
[2017-08-13 14:50] LABS: PLATELET COUNT, AUTOMATED 189 K/uL (150-450)
== END ==
LOC: LAB 14:24
PROVIDERS: ATTEND Nurse Practitioner Primary Care
DX: R19.7 Diarrhea, unspecified (principal)
CPT/HCPCS: 36415; 82040; 82247; 82310; 82374; 82435; 82565; 82947; 84075; 84132; 84155; 84295; 84450; 84460; 84520; 85025

== ENCOUNTER 2017-08-17 09:00 | Outpatient (RCR) | payer MEDICARE, BC ==
[~2017-08-17 09:00] MED LIST changes: -LEU30I IM ONLY; -POLY17PO25 PO
[2017-08-18] MEDS ORDERED: GLUC100026 PO (10:29)
[2017-08-18] MEDS ORDERED: LEU30I IM ONLY (10:33)
[2017-08-18] MEDS ORDERED: LACT1CAP6 PO (10:33)
[2017-08-18] MEDS ORDERED: POLY17PO25 PO (10:33)
== END 2017-08-17 13:44 | disposition home or self-care (01) ==
LOC: RAON 09:00
PROVIDERS: ATTEND Radiology Radiation Oncology
DX: C61 Malignant neoplasm of prostate (principal); K22.70 Barrett's esophagus without dysplasia; N40.0 Benign prostatic hyperplasia without lower urinary tract symptoms; E78.5 Hyperlipidemia, unspecified; I10 Essential (primary) hypertension; M85.80 Other specified disorders of bone density and structure, unspecified site; Z92.3 Personal history of irradiation
CPT/HCPCS: 99212

== ENCOUNTER → 2017-08-17 | Outpatient (REF) | payer MEDICARE, BC ==
[~2017-08-17] MED LIST changes: +LEU30I IM ONLY; +POLY17PO25 PO
== END ==
LOC: ZZSENDIN 11:40
PROVIDERS: ATTEND Nurse Practitioner Primary Care
DX: Z12.5 Encounter for screening for malignant neoplasm of prostate (principal)
CPT/HCPCS: 84153

== ENCOUNTER → 2017-11-03 | Outpatient (CLI) | payer MEDICARE, BC ==
[~2017-11-03] MED LIST changes: +AMLO-96 PO; +BICA50TA36 PO; +LEU30I IM ONLY; +POLY17PO25 PO
== END ==
LOC: LAB 11:18
PROVIDERS: ATTEND Urology
DX: C61 Malignant neoplasm of prostate (principal)
CPT/HCPCS: 36415; 84153; 84403

== ENCOUNTER 2017-11-23 09:58 | Outpatient (RCR) | payer MEDICARE, BC ==
[~2017-11-23 09:58] MED LIST changes: -RANI-324 PO; +RANI-366 PO
== END 2017-11-24 14:42 | disposition home or self-care (01) ==
LOC: RAON 09:58
PROVIDERS: ATTEND Radiology Radiation Oncology
DX: C61 Malignant neoplasm of prostate (principal)
CPT/HCPCS: 99212

== ENCOUNTER → 2018-03-02 | Outpatient (CLI) | payer MEDICARE, BC ==
[~2018-03-02] MED LIST changes: -BICA50TA36 PO; +BICA50TA41 PO
[2018-03-02 17:54] LABS: PLATELET COUNT, AUTOMATED 176 K/uL (150-450)
== END ==
LOC: LAB 17:24
PROVIDERS: ATTEND Urology
DX: C61 Malignant neoplasm of prostate (principal)
CPT/HCPCS: 36415; 82040; 82247; 82310; 82374; 82435; 82565; 82947; 84075; 84132; 84153; 84155; 84295; 84450; 84460; 84520; 85025

== ENCOUNTER 2018-05-17 10:00 | Outpatient (RCR) | payer MEDICARE, BC ==
--- NOTE | 2018-04-13 12:47 | PT INITIAL EVALUATION ---
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 He fell onto his face and L side 08/07/17, injuring his face and chest. He denies jaw pain at the time. L TMJ started clicking and now the R TMJ is clicking with jaw opening and chewing. Jaw opening is limited at time to one finger, painful, 6/10. He doesn't have dentures or bridges. Pain location is jaw joints and described as sharp click and ache, infrequent REEVES. Pain scale is 6/10 worse with chewing soft food and better with rest. REHAB PROBLEM LIST: Pain, reduced tolerance to chewing, Altered posture, Reduced ROM PREVIOUS MEDICAL HISTORY: Prostate cancer, valve replacement, L rib fractures, BPH, HTN, lumbar surgery, R RCR, L shoulder arthroscope, dizziness. Right- handed. 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 [place] with his . OBJECTIVE: Posture: Mild L sidebend of head, ~20 degrees, forward head, L moderate convex thoracic scoliosis, iliac crests even. ROM: Jaw opening 2 cm with L deviation open/close. Cervical AROM sidebend L40%, R 50%, rotation L 60%, R 50%, flexion 75%, extension 50%, tight cervical muscles all about the spine. R suprahyoid muscles are tighter than L, particularly the stylohyoid muscle. Shoulder AROM flexion, abduction R 120, L 140, tight soft tissue, non-capsular pattern. Strength: Shoulder ER, triceps, BR B 5-/5. Palpation: Myofascial restrictions, pain R TMJ, L lower anterior cervical/upper thoracic soft tissue, Special Tests: Anterior and medial R TMJ. Upper cervical ligament tests unremarkable. Sidebent R C2/3 and the cervical facets C3/4 to C6/7 are densely hypomobile. Gait: Normal scapulohumeral rhythm B shoulders. ASSESSMENT: Ricardo Sharma presents with eventual muscle imbalance, tightness from striking his face, causing maltracking TMJ, pain. He did well with manual therapy for jaw opening with opening improved to 2.75 cm. He's started on jaw tracking HEP. Short Term Goals 4 weeks: Graham rates TMJ pain 2-3/10 with chewing semi-solid foods. 8 weeks: Graham denies TMJ pain with chewing foods, full mouth opening.. Patient's Goals No jaw pain with chewing foods. PLAN: Patient to be seen for Manual Therapy Strengthening/condition Ice/Heat Range of Motion Spinal Stabilization Stretching Neuromuscular Re-ed Electrical Stim Posture/Body mechanics Gait Trg/Balance Trg Home Exercise Program 2x/Week for 2 Months Thank you for this referral. If you have any questions, comments, or concerns about this report or plan, please contact me at . MTDD
[~2018-05-17 10:00] MED LIST changes: +AMLO-111 PO; -AMLO-96 PO; +CETI-176 PO; -LOSA100T67 PO; +LOSA100T69 PO; -LOSA50TA72 PO; +LOSA50TA74 PO; +OMEP40CA48 PO
--- NOTE | 2018-05-17 11:01 | PT PLAN OF CARE ---
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 met 8 weeks: Graham denies TMJ pain with chewing foods, full mouth opening. both met PATIENT'S GOAL: No jaw pain with chewing foods. partially met - mild pain Patient Compliance: Excellent Prognosis: Excellent Reasons for discontinuing therapy: S: Graham relates he only has mild R jaw pain with chewing semi-solid food and meat, but won't give pain scale rating. Posture: Midline head, mild forward head posture. ROM: Jaw opening 3.5 cm with mild L deviation open. Cervical AROM WNL. Palpation: WNL jaw/cervical soft tissue. Special Tests: Neutral B TMJ position. A/P: Graham Sharma has improved posture, jaw biomechanics and continue with HEP to work alignment with opening, jaw strengthening. I'll DC PT to HEP. Thank you. ILEANA
== END 2018-05-17 18:00 | disposition home or self-care (01) ==
LOC: PT 10:00
PROVIDERS: ATTEND Nurse Practitioner Primary Care
DX: M26.603 Bilateral temporomandibular joint disorder, unspecified (principal); I10 Essential (primary) hypertension; R42 Dizziness and giddiness; Z85.46 Personal history of malignant neoplasm of prostate; Z95.2 Presence of prosthetic heart valve
CPT/HCPCS: 97162

== ENCOUNTER → 2018-05-19 | Outpatient (CLI) | payer MEDICARE, BC ==
[~2018-05-19] MED LIST changes: +FLU180SY11 IM
== END ==
LOC: RESP 20:47
PROVIDERS: ATTEND Nurse Practitioner Primary Care
DX: G47.33 Obstructive sleep apnea (adult) (pediatric) (principal); G47.36 Sleep related hypoventilation in conditions classified elsewhere

== ENCOUNTER 2018-06-03 10:18 | Emergency (ER) | payer MEDICARE, BC ==
[2018-06-03] MEDS ORDERED: NS(*) 0.9% 1000 ML BAG 1,000 ML IV ONE ×2 (10:27→12:10)
--- NOTE | 2018-06-03 10:27 | ER Report ---
History and Physical Time Seen By MD: 10:27 HPI/ROS CHIEF COMPLAINT: Dizziness, weakness HISTORY OF PRESENT ILLNESS: Patient is a 77-year-old male with a history of prostate cancer here with 3 day history of dizziness, nausea, vomiting, weaknes s. Patient reports that he is unable to keep down food or fluids and has been having difficulty ambulating due to vertiginous symptoms. Patient is in no acute distress at time of evaluation, complaining of general malaise, fatigue. Denies recent fall REVIEW OF SYSTEMS: Constitutional: No fever, no chills, + general malaise Eyes: No discharge. ENT: No sore throat. Cardiovascular: No chest pain, no palpitations. Respiratory: No cough, no shortness of breath. Gastrointestinal: No abdominal pain, no vomiting. Genitourinary: No hematuria. Musculoskeletal: No back pain. Skin: No rashes. Neurological: No headache. Allergies: Coded Allergies: No Known Drug Allergies (Unverified , 06/03/18) Home Meds Active Scripts Meclizine Hcl (MECLIZINE HCL) 25 Mg Tab.chew, 25 MG PO BID, #20 TAB.CHEW Prov:OZILA CHI DO 06/03/18 Ondansetron (ZOFRAN ODT) 4 Mg Tab.rapdis, 4 MG PO Q6H PRN for NAUSEA/VOMITING, #20 TAB.HUNTER 0 Refills Prov:ZOILA CHI DO 06/03/18 Tamsulosin Hcl (TAMSULOSIN HCL) 0.4 Mg Cap.er.24h, 1 TAB PO QDAY for 90 Days, #180 CAP 3 Refills Prov:JOSE LEDBETTER DNP, FNP-BC 05/24/18 Losartan Potassium (LOSARTAN POTASSIUM) 100 Mg Tablet, 1 TAB PO BID, #180 TAB 1 Refill Take 1 tab in morning and 1 tab at night. Prov:JOSE LEDBETTER DNP, FNP-BC 09/23/17 Amlodipine Besylate (AMLODIPINE BESYLATE) 5 Mg Tablet, 1 TAB PO QDAY, #90 TAB 3 Refills Prov:JOSE LEDBETTER DNP, FNP-BC 09/21/17 Atorvastatin Calcium (LIPITOR) 20 Mg Tablet, 1 TAB PO QDAY, #90 TAB 4 Refills Prov:JOSE LEDBETTER DNP, FNP-BC 05/26/17 Reported Medications Lamotrigine (LAMOTRIGINE) 300 Mg Tab.er.24, 300 MG PO 05/13/18 Cholecalciferol (Vitamin D3) (VITAMIN D) Unknown Strength Tablet, PO 01/15/17 Ascorbic Acid (VITAMIN C) 1,000 Mg Tablet, 1 TAB PO QDAY 01/15/17 Hx Smoking: No Smoking Status: Never Smoker Hx Substance Use Disorder: No Hx Alcohol Use: Yes Constitutional Vital Sign - Last 24 Hours 06/03/18 06/03/18 06/03/18 06/03/18 10:27 10:28 10:30 10:30 Temp 97.4 Pulse 51 50 Resp 18 12 B/P (MAP) 167/90 (115) 165/85 (111) 165/85 Pulse Ox 99 99 O2 Delivery Room Air 06/03/18 06/03/18 06/03/18 06/03/18 10:33 10:38 10:43 10:48 Pulse 51 52 52 51 Resp 13 13 15 14 Pulse Ox 100 99 99 100 06/03/18 06/03/18 06/03/18 06/03/18 10:53 11:08 11:13 11:18 Pulse 49 48 48 Resp 12 19 13 11 Pulse Ox 99 99 99 06/03/18 06/03/18 06/03/18 06/03/18 11:23 11:28 12:04 12:08 Pulse 49 46 46 Resp 13 9 11 B/P (MAP) 181/85 (117) Pulse Ox 99 99 98 06/03/18 06/03/18 06/03/18 06/03/18 12:13 12:18 12:30 12:48 Pulse 46 47 50 Resp 9 16 14 B/P (MAP) 145/83 (103) Pulse Ox 94 92 95 06/03/18 13:00 B/P (MAP) 126/77 (93) Intake and Output 06/03/18 06/03/18 06/04/18 15:00 23:00 07:00 Intake Total 2000 ml Balance 2000 ml Physical Exam General Appearance: The patient is alert, has no immediate need for airway p rotection and no signs of toxicity. NAD, uncomfortable appearing Eyes: Pupils equal and round no pallor or injection. ENT, Mouth: Mucous membranes are moist. Respiratory: There are no retractions, lungs are clear to auscultation. Cardiovascular: Regular rate and rhythm. Gastrointestinal: Abdomen is soft and non tender, no masses, bowel sounds normal. Neurological: No focal neuro deficits Skin: Warm and dry, no rashes. Musculoskeletal: Neck is supple non tender. Extremities are nontender, nonswollen and have full range of motion. DIFFERENTIAL DIAGNOSIS: After history and physical exam differential diagnosis was considered for dehydration, viral syndrome, electrolyte abnormality, vertigo Medical Decision Making Data Points Result Diagram: 06/03/18 1040 06/03/18 1040 Laboratory Hematology Test 06/03/18 00:00 06/03/18 10:40 06/03/18 11:40 Lipase 60 U/L (23-300) Red Blood Count 4.79 M/uL (4.00-5.60) Mean Corpuscular Volume 92.6 fL (80.0-96.0) Mean Corpuscular Hemoglobin 32.1 pg (26.0-33.0) Mean Corpuscular Hemoglobin Concent 34.6 g/dL (32.0-36.0) Red Cell Distribution Width 13.4 % (11.5-14.5) Mean Platelet Volume 7.3 fL (7.2-11.1) Neutrophils (%) (Auto) 77.9 % (39.4-72.5) Lymphocytes (%) (Auto) 14.9 % (17.6-49.6) Monocytes (%) (Auto) 5.5 % (4.1-12.4) Eosinophils (%) (Auto) 0.6 % (0.4-6.7) Basophils (%) (Auto) 1.1 % (0.3-1.4) Nucleated RBC Relative Count (auto) 0.0 /100WBC Neutrophils # (Auto) 4.1 K/uL (2.0-7.4) Lymphocytes # (Auto) 0.8 K/uL (1.3-3.6) Monocytes # (Auto) 0.3 K/uL (0.3-1.0) Eosinophils # (Auto) 0.0 K/uL (0.0-0.5) Basophils # (Auto) 0.1 K/uL (0.0-0.1) Nucleated RBC Absolute Count (auto) 0.00 K/uL Sodium Level 138 mmol/L (137-145) Potassium Level 3.9 mmol/L (3.5-5.0) Chloride Level 102 mmol/L (98-107) Carbon Dioxide Level 26 mmol/L (22-30) Blood Urea Nitrogen 17 mg/dl (9-21) Creatinine 1.20 mg/dl (0.66-1.25) Glomerular Filtration Rate Calc 58.9 Random Glucose 98 mg/dl (75-110) Calcium Level 10.2 mg/dl (8.4-10.2) Total Bilirubin 1.1 mg/dl (0.2-1.3) Aspartate Amino Transf (AST/SGOT) 24 U/L (0-35) Alanine Aminotransferase (ALT/SGPT) 32 U/L (0-56) Alkaline Phosphatase 110 U/L (0-126) Troponin I < 0.012 ng/ml Total Protein 7.4 g/dl (6.3-8.2) Albumin 4.3 g/dl (3.5-5.0) Human Chorionic Gonadotropin, Qual Negative (NEGATIVE) Urine Color Yellow Urine Clarity Cloudy Urine pH 7.0 pH (4.8-9.5) Urine Specific Anderson 1.009 Urine Protein Negative mg/dL (NEGATIVE) Urine Glucose (UA) Negative mg/dL (NEGATIVE) Urine Ketones 20 mg/dL (NEGATIVE) Urine Blood Negative (NEGATIVE) Urine Nitrite Negative (NEGATIVE) Urine Bilirubin Negative (NEGATIVE) Urine Urobilinogen Negative mg/dL (0.2-1.9) Urine Leukocyte Esterase Negative (NEGATIVE) Urine RBC None /HPF (0-2/HPF) Urine WBC 2 /HPF (0-5/HPF) Urine Squamous Epithelial Cells None /LPF (</=FEW) Urine Bacteria Few /HPF (NONE-FEW) Urine Mucus Few /HPF (NONE-FEW) Chemistry Test 06/03/18 00:00 06/03/18 10:40 06/03/18 11:40 Lipase 60 U/L (23-300) White Blood Count 5.2 k/uL (4.5-11.0) Red Blood Count 4.79 M/uL (4.00-5.60) Hemoglobin 15.4 g/dL (14.0-18.0) Hematocrit 44.4 % (42.0-52.0) Mean Corpuscular Volume 92.6 fL (80.0-96.0) Mean Corpuscular Hemoglobin 32.1 pg (26.0-33.0) Mean Corpuscular Hemoglobin Concent 34.6 g/dL (32.0-36.0) Red Cell Distribution Width 13.4 % (11.5-14.5) Platelet Count 209 K/uL (150-450) Mean Platelet Volume 7.3 fL (7.2-11.1) Neutrophils (%) (Auto) 77.9 % (39.4-72.5) Lymphocytes (%) (Auto) 14.9 % (17.6-49.6) Monocytes (%) (Auto) 5.5 % (4.1-12.4) Eosinophils (%) (Auto) 0.6 % (0.4-6.7) Basophils (%) (Auto) 1.1 % (0.3-1.4) Nucleated RBC Relative Count (auto) 0.0 /100WBC Neutrophils # (Auto) 4.1 K/uL (2.0-7.4) Lymphocytes # (Auto) 0.8 K/uL (1.3-3.6) Monocytes # (Auto) 0.3 K/uL (0.3-1.0) Eosinophils # (Auto) 0.0 K/uL (0.0-0.5) Basophils # (Auto) 0.1 K/uL (0.0-0.1) Nucleated RBC Absolute Count (auto) 0.00 K/uL Glomerular Filtration Rate Calc 58.9 Calcium Level 10.2 mg/dl (8.4-10.2) Total Bilirubin 1.1 mg/dl (0.2-1.3) Aspartate Amino Transf (AST/SGOT) 24 U/L (0-35) Alanine Aminotransferase (ALT/SGPT) 32 U/L (0-56) Alkaline Phosphatase 110 U/L (0-126) Troponin I < 0.012 ng/ml Total Protein 7.4 g/dl (6.3-8.2) Albumin 4.3 g/dl (3.5-5.0) Human Chorionic Gonadotropin, Qual Negative (NEGATIVE) Urine Color Yellow Urine Clarity Cloudy Urine pH 7.0 pH (4.8-9.5) Urine Specific Anderson 1.009 Urine Protein Negative mg/dL (NEGATIVE) Urine Glucose (UA) Negative mg/dL (NEGATIVE) Urine Ketones 20 mg/dL (NEGATIVE) Urine Blood Negative (NEGATIVE) Urine Nitrite Negative (NEGATIVE) Urine Bilirubin Negative (NEGATIVE) Urine Urobilinogen Negative mg/dL (0.2-1.9) Urine Leukocyte Esterase Negative (NEGATIVE) Urine RBC None /HPF (0-2/HPF) Urine WBC 2 /HPF (0-5/HPF) Urine Squamous Epithelial Cells None /LPF (</=FEW) Urine Bacteria Few /HPF (NONE-FEW) Urine Mucus Few /HPF (NONE-FEW) Urinalysis Test 06/03/18 11:40 Urine Color Yellow Urine Clarity Cloudy Urine pH 7.0 pH (4.8-9.5) Urine Specific Anderson 1.009 Urine Protein Negative mg/dL (NEGATIVE) Urine Glucose (UA) Negative mg/dL (NEGATIVE) Urine Ketones 20 mg/dL (NEGATIVE) Urine Blood Negative (NEGATIVE) Urine Nitrite Negative (NEGATIVE) Urine Bilirubin Negative (NEGATIVE) Urine Urobilinogen Negative mg/dL (0.2-1.9) Urine Leukocyte Esterase Negative (NEGATIVE) Urine RBC None /HPF (0-2/HPF) Urine WBC 2 /HPF (0-5/HPF) Urine Squamous Epithelial Cells None /LPF (</=FEW) Urine Bacteria Few /HPF (NONE-FEW) Urine Mucus Few /HPF (NONE-FEW) EKG/Imaging EKG Interpretation Test Reason : Dizzy Blood Pressure : / mmHG Vent. Rate : 052 BPM Atrial Rate : 052 BPM P-R Int : 268 ms QRS Dur : 080 ms QT Int : 454 ms P-R-T Axes : 058 -26 037 degrees QTc Int : 422 ms Sinus bradycardia with 1st degree AV block Left axis Poor R wave progression anteriorly Abnormal ECG Monitor Interpretation: Sinus Bradycardia Imaging Head CT scan without contrast HISTORY: Dizziness COMPARISONS: August 09, 2017 TECHNIQUE: Non-contrast head CT was performed with sagittal and coronal reformations. One of the following dose optimization techniques was utilized in the performance of this exam: automated exposure control; adjustment of the mA and/or kV according to patient size; or use of iterative reconstruction technique. Specific details can be referenced in the facility's radiology CT exam operational policy. FINDINGS: There is no intracranial hemorrhage, hydrocephalus or midline shift. The basal cisterns, bennett-white differentiation, and convexity sulci are maintained. Normal orbital soft tissues. Mild unchanged patchy white matter hypoattenuation. 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 The mastoid air cells are clear. The paranasal sinuses are clear. The osseous structures are normal. IMPRESSION: No acute intracranial abnormality. Mild unchanged chronic small vessel ischemic change. 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 Report Dictated By: Matthew Burns MD at 06/03/2018 11:18 AM CHEST SINGLE AP Additional pertinent History: Dizziness/vomiting COMPARISON STUDIES: none FINDINGS: Support lines and catheters: None Lungs and Pleura: Small focal area of atelectasis/scarring in the left lower lung. Heart and vasculature: Negative. Flori and Mediastinum: Negative. Bones and Chest wall: Negative. Upper Abdomen: Negative. IMPRESSION: 1. Minimal scarring/atelectasis in the left lower lung. Study otherwise unremarkable ED Course/Re-evaluation ED Course Patient is a 77-year-old male here with complaints of general malaise, fatigue, nausea and vomiting for the past several days, inability to keep down oral intake. Patient was given meclizine, Zofran, IV fluid boluses for rehydration 2 L. Labs are unremarkable for electrolyte abnormalities, leukocytosis. Patient was able to pass an oral challenge, was stable on his feet with ambulation. Patient had significant improvement of symptoms and was discharged home with close PCP follow-up. Decision to Disposition Date: Jun 03, 2018 Decision to Disposition Time: 13:15 Depart Departure Latest Vital Signs Vital Signs Date Time Temp Pulse Resp B/P (MAP) Pulse Ox O2 Delivery O2 Flow Rate FiO2 06/03/18 13:00 126/77 (93) 06/03/18 12:48 50 14 95 06/03/18 10:30 97.4 Room Air Impression: Primary Impression: Dizziness Additional Impression: Fatigue Condition: Improved Disposition: HOME OR SELF-CARE Referrals: JOSE LEDBETTER DNP, [employer]GE-BC (PCP) New Scripts Meclizine Hcl (MECLIZINE HCL) 25 Mg Tab.chew 25 MG PO BID, #20 TAB.CHEW Prov: ZOILA CHI DO 06/03/18 Ondansetron (ZOFRAN ODT) 4 Mg Tab.rapdis 4 MG PO Q6H PRN for NAUSEA/VOMITING, #20 TAB.HUNTER 0 Refills Prov: ZOILA CHI DO 06/03/18 Patient Instructions: Acute Nausea and Vomiting (ED), Dehydration (ED) Additional Instructions: You may take 1 tablet of Zofran every 4-6 hours as needed for nausea and vomiting. Please drink plenty of water. You may take 1 tablet of meclizine twice daily as needed for dizziness. Please follow up closely in the next day or 2 with your family doctor and return promptly if you develop fevers, worsening nausea and vomiting, inability to keep down food or fluids. Problem Qualifiers ZOILA CHI DO Jun 03, 2018 10:27
[2018-06-03] MEDS ORDERED: MECLIZINE HCL 25 MG TAB PO ONE (10:30)
--- NOTE | 2018-06-03 10:51 | EKG ---
FACILITY: [facility] [place]IENT NAME: GET CALLEJAS : [id number] MR: [id number] V: [id number] EXAM DATE: ORDERING PHYSICIAN: ZOILA CHI TECHNOLOGIST: Test Reason : Dizzy Blood Pressure : / mmHG Vent. Rate : 052 BPM Atrial Rate : 052 BPM P-R Int : 268 ms QRS Dur : 080 ms QT Int : 454 ms P-R-T Axes : 058 -26 037 degrees QTc Int : 422 ms Sinus bradycardia with 1st degree AV block Left axis Poor R wave progression anteriorly Abnormal ECG Confirmed by RAFAT CONNER ([id number]) on 06/03/2018 9:12:30 PM Referred By: Confirmed By:RAFAT CONNER
[2018-06-03 10:53] LABS: PLATELET COUNT, AUTOMATED 209 K/uL (150-450)
--- NOTE | 2018-06-03 11:26 | RADIOLOGY IMAGING REPORT ---
FACILITY: [facility] - [place], [place] PATIENT NAME: Ricardo Sharma : 1940 MR: [id number] V: [id number] EXAM DATE: ORDERING PHYSICIAN: ZOILA CHI TECHNOLOGIST: Location: [facility] - [place] Patient: Ricardo Sharma : 1940 Visit/Account:[id number] Date of Sevice: 06/03/[address] scan without contrast HISTORY: Dizziness COMPARISONS: August 09, 2017 TECHNIQUE: Non-contrast head CT was performed with sagittal and coronal reformations. One of the following dose optimization techniques was utilized in the performance of this exam: autom ated exposure control; adjustment of the mA and/or kV according to patient size; or use of iterative reconstruction technique. Specific details can be referenced in the facility's radiology CT exam ope rational policy. FINDINGS: There is no intracranial hemorrhage, hydrocephalus or midline shift. The basal cisterns, bennett-white differentiation, and convexity sulci are maintained. Normal orbital soft tissues. Mild unchanged patc hy white matter hypoattenuation. Unchanged chronic lacunar infarcts in the bilateral frontal deep whi te matter. The mastoid air cells are clear. The paranasal sinuses are clear. The osseous structures are normal . IMPRESSION: No acute intracranial abnormality. Mild unchanged chronic small vessel ischemic change. 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 Report Dictated By: Matthew Burns MD at 06/03/2018 11:18 AM Report E-Signed By: Matthew Burns MD at 06/03/2018 11:22 AM WSN:[email or web address]
--- NOTE | 2018-06-03 11:31 | RADIOLOGY IMAGING REPORT ---
FACILITY: [facility] PATIENT NAME: Ricardo Sharma : 1940 MR: [id number] V: [id number] EXAM DATE: ORDERING PHYSICIAN: ZOILA CHI TECHNOLOGIST: Location: [facility] - [place] Patient: Ricardo Sharma : 1940 Visit/Account:[id number] Date of Sevice: 06/03/2018 CHEST SINGLE AP Additional pertinent History: Dizziness/vomiting COMPARISON STUDIES: none FINDINGS: Support lines and catheters: None Lungs and Pleura: Small focal area of atelectasis/scarring in the left lower lung. Heart and vasculature: Negative. Flori and Mediastinum: Negative. Bones and Chest wall: Negative. Upper Abdomen: Negative. IMPRESSION: 1. Minimal scarring/atelectasis in the left lower lung. Study otherwise unremarkable Report Dictated By: Juliano Mercado MD at 06/03/2018 11:26 AM Report E-Signed By: Juliano Mercado MD at 06/03/2018 11:27 AM WSN:[email or web address]
[2018-06-03 13:00] VITALS: BP 126/77
[2018-06-03] MEDS ORDERED: ONDA4TAB PO (13:05)
[2018-06-03] MEDS ORDERED: MECL25TA27 PO (13:05)
== END 2018-06-03 13:10 | disposition home or self-care (01) ==
LOC: ER 10:39
DX: R42 Dizziness and giddiness (principal); R53.83 Other fatigue; I44.0 Atrioventricular block, first degree; R00.1 Bradycardia, unspecified
CPT/HCPCS: 70450; 71045; 81001; 83690; 84484; 84703; 85025; 93005; 96360; 96361; 99284; J7030; J8597; 82040; 82247; 82310; 82374; 82435; 82565; 82947; 84075; 84132; 84155; 84295; 84450; 84460; 84520

== ENCOUNTER → 2018-07-06 | Outpatient (CLI) | payer MEDICARE, BC ==
[~2018-07-06] MED LIST changes: -LOSA100T69 PO; +LOSA100T75 PO; -LOSA50TA74 PO; +LOSA50TA80 PO; +MECL25TA27 PO
--- NOTE | 2018-07-06 09:58 | RADIOLOGY IMAGING REPORT ---
FACILITY: [facility] PATIENT NAME: Ricardo Sharma : 1940 MR: [id number] V: [id number] EXAM DATE: ORDERING PHYSICIAN: ANA ROSA LACKEY TECHNOLOGIST: Location: [facility] - [place] Patient: Ricardo Sharma : 1940 Visit/Account:[id number] Date of Sevice: 07/06/2018 Examination: MR brain without contrast History: Seizures Comparison: Head CT June 03, 2018, brain MR August 06, 2009 Technique: Multiplane MR imaging was performed through the brain without contrast. Findings: Diffusion: None Ventricles: Normal Midline shift: None Extraaxial fluid: None. Midline craniocervical structures: Normal Parenchyma: A small chronic posterior left cerebellar infarct is new compared to prior brain MR and i s unchanged compared to CT in hindsight review. Punctate unchanged left additional cerebellar infarct . Punctate to small unchanged right chronic cerebellar infarcts. Greater than 20 punctate to small wh ite matter high signal foci have increased in number. Vascular flow voids: Normal Orbits and paranasal sinuses: Normal Other: No significant additional finding. Impression: 1. No acute intracranial abnormality. 2. Mild chronic small vessel ischemic change has increased compared to 2010 MR. 3. Small chronic left cerebellar infarct is new compared to prior MR but is unchanged compared to 06/03/[address] in hindsight review. 4. Unchanged additional punctate to small bilateral chronic cerebellar infarcts compared to prior bra in MR. Report Dictated By: Matthew Burns MD at 07/06/2018 9:47 AM Report E-Signed By: Matthew Burns MD at 07/06/2018 9:54 AM WSN:[email or web address]
== END ==
LOC: MRI 07:09
PROVIDERS: ATTEND Psychiatry & Neurology Neurology
DX: I67.82 Cerebral ischemia (principal)
CPT/HCPCS: 70551

== ENCOUNTER 2018-11-08 14:35 | Outpatient (RCR) | payer MEDICARE, BC ==
[~2018-11-08 14:35] MED LIST changes: -AMLO-111 PO; +AMLO-125 PO; -RANI-366 PO; +RANI-54 PO
[2018-11-08 15:29] VITALS: BP 134/72
[2018-11-08 15:46] LABS: PLATELET COUNT, AUTOMATED 184 K/uL (150-450)
[2018-11-08] MEDS ORDERED: IBUP-1784 PO (16:55)
[2018-11-08] MEDS ORDERED: TAMS0.4C25 PO (16:55)
[2018-11-08] MEDS ORDERED: LEVO-85 PO (16:55)
--- NOTE | 2018-11-09 02:23 | ONCOLOGY FOLLOW UP NOTE ---
EVENT DATE: November 08, 2018 CHIEF COMPLAINT 1. Right testicular pain. 2. Voiding dysfunction. 3. Prostate carcinoma, status post external beam radiotherapy with ongoing ADT. ONCOLOGY HISTORY 1. 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 Tumor occupied of 7 of 12 core biopsies on biopsy date 04/08/17. 2. Pre-biopsy PSA of 3.9 ng/mL; visible asymmetry of the right seminal vesicle on initial review of the CT of the abdomen and pelvis. 3. Patient started on Lupron every four months 04/28/17. Patient received external beam radiation therapy with progressive field reduction technique to 7560 cGy. HISTORY OF PRESENT ILLNESS The patient made a special appointment to come in to be seen today. He notified the [facility] at the [facility] that he was having pain in the right testicle. He requested an evaluation. He states that his symptom complex started perhaps three to four months ago. At times this is aggravated by crossing his legs. He also noted an increase in nocturia and urgency. He has occasional leakage. He denies any blood in the urine. He does have constipation. The patient has also been experiencing some memory loss and was uncertain of the medications he was taking. MEDICATIONS 1. Atorvastatin 20 mg a day. 2. Meclizine 25 mg b.i.d. p.r.n. dizziness. 3. Tamsulosin 0.4 mg daily (patient states he is not taking this). 4. Amlodipine 5 mg a day. 5. Losartan 100 mg b.i.d. 6. Lamotrigine 300 mg ER daily. 7. Losartan potassium 100 mg b.i.d. 8. Vitamin C. 9. Vitamin D3. ALLERGIES He has intolerance to: 1. AVODART. 2. LATEX. 3. ? OXYBUTYNIN. SOCIAL HISTORY Lives with spouse. Does not drink alcohol. Never smoked. FAMILY HISTORY Strong family history of coronary artery disease, with his father dying of an MD at age 47. His mother lived to age 84. REVIEW OF SYSTEMS Comprehensive review of systems: Difficulty concentrating, fatigue, occasional sweats. States he has some minor seizure activity, frequent urination at night, urgency and occasional leakage, constipation, minor reflux. PHYSICAL EXAMINATION GENERAL: A pleasant, cooperative 77-year-old male. VITAL SIGNS: Blood pressure 134/72, pulse 63, respirations 16, O2 saturation of 90%. Weight 182. LUNGS: Clear to auscultation bilaterally. HEART: Heart sounds regular. LYMPHATIC: No peripheral lymphadenopathy. ABDOMEN: Soft. No gross organomegaly, mass or tenderness. /RECTAL: I did a rectal exam today, and prostate is fairly flat with no significant tenderness noted. I then did a testicular exam. The left testicle is unremarkable. The right testicle is sensitive to palpation. Epididymis is palpable, with some minor tenderness, but the majority of the tenderness appeared to be from the testicle itself. No palpable mass. IMPRESSION #1 Highly probable orchitis -- epididymitis. PLAN 1. Levaquin 500 mg daily x10 days. 2. Ibuprofen 600 mg t.i.d. for five days. 3. CCUA with culture if indicated today. 4. Refer back to Dr. Suarez for further assessment. IMPRESSION #2 Urinary urgency with nocturia x3. PLAN My plan from that standpoint is to place him on the full-dose Flomax of 0.4 mg b.i.d. If he is not improved within a week, he may benefit from urodynamics with Dr. Suarez's office and possibly the addition of an inhibiting agent such as Ditropan, provided it would not interact with his other medications. Patient also had a PSA drawn today in addition to his CBC and CMP. I reviewed the latter information, with mild left shift but normal white count. The PSA should be available in the morning and will be faxed over to Dr. Suarez's office as well. The original plan was to continue the ADT therapy for a full 24 months. He certainly does have a very high-risk carcinoma, based on the pathology, for tumor progression. I will have the staff check on his status next week to see how he is coming along. Clinical visit was completed in approximately a 40-minute appointment today. Patient was worried that he may have testicular cancer , so I did reassure him that this was not the case. I do not think he has a torsion of the testicle, but I will leave that expertise to Dr. Suarez at his next reassessment, which is approximately one week out. [facility]
[2018-11-10] MEDS ORDERED: GLUC1TAB35 PO (15:07)
[2018-11-10] MEDS ORDERED: BICA50TA41 PO (15:07)
[2018-11-10] MEDS ORDERED: [UNRECOGNIZED DRUG - OTHER] OU (15:07)
== END 2018-12-26 15:40 | disposition home or self-care (01) ==
LOC: RAON 14:35
PROVIDERS: ATTEND Radiology Radiation Oncology
DX: N50.811 Right testicular pain (principal); Z85.46 Personal history of malignant neoplasm of prostate
CPT/HCPCS: 36415; 81001; 84153; 85025; G0463; 82040; 82247; 82310; 82374; 82435; 82565; 82947; 84075; 84132; 84155; 84295; 84450; 84460; 84520; 99212

== ENCOUNTER 2019-03-07 14:14 | Emergency (ER) | payer MEDICARE, BC ==
[~2019-03-07 14:14] MED LIST changes: +GLUC1TAB35 PO; +IBUP-1784 PO; +TAMS0.4C25 PO; +[UNRECOGNIZED DRUG - OTHER] OU
--- NOTE | 2019-03-07 14:23 | ER Report ---
History and Physical Time Seen By MD: 14:19 HPI/ROS CHIEF COMPLAINT: dizziness, nausea HISTORY OF PRESENT ILLNESS: Pt is a 78 year old male c/o dizziness, nausea and weakness for the last few hours that started out of no where. He was sitting on the couch at the time of onset, states he played Pickle ball about 2 hours before onset. He had no LOC, blurry vision or chest pain. Endorses SOB and a headache. Has had a headache off and on for the last 3 days that he states "almost brought me into the ER". Has not taken anything for treatment and nothing makes him feel worse. REVIEW OF SYSTEMS: Respiratory: No cough, dyspnea, SOB Cardiovascular: No chest pain, no palpitations. Gastrointestinal: No vomiting, no abdominal pain. Musculoskeletal: No back pain, generalized weakness. Allergies: Coded Allergies: No Known Drug Allergies (Unverified , 06/03/18) Home Meds Active Scripts Scopolamine (Transderm-Scop) 1 Mg/3 Day Patch.td.3, 1 PATCH.72H TD Q3D PRN for DIZZINESS, #3 PATCH.72H Prov:JOANNA JORDANP 03/07/19 Amlodipine Besylate (AMLODIPINE BESYLATE) 5 Mg Tablet, 1 TAB PO QDAY for 90 Days, #90 TAB 4 Refills Prov:JOSE LEDBETTER DNP [facility] 01/04/19 Losartan Potassium (LOSARTAN POTASSIUM) 100 Mg Tablet, 1 TAB PO BID, #180 TAB 1 Refill Blood Pressure Medication Prov:JOSE LEDBETTER DNP [facility] 08/23/18 Atorvastatin Calcium (LIPITOR) 20 Mg Tablet, 1 TAB PO QDAY, #90 TAB 3 Refills Cholesterol Medication Prov:JOSE LEDBETTER DNP [facility] 08/23/18 Meclizine Hcl (MECLIZINE HCL) 25 Mg Tab.chew, 1 TAB PO BID PRN for DIZZINESS, #60 TAB.CHEW 1 Refill Prov:JOSE LEDBETTER DNP [facility] 06/21/18 Reported Medications Glucosamine/Msm/Chondroitin A (GLUCOSAMINE CHONDROIT MSM TAB) 1 Each Tablet, PO 3XW 11/10/18 [Max Vision] No Conflict Check, 20 MG OU 3XW 11/10/18 Bicalutamide (BICALUTAMIDE) 50 Mg Tablet, 50 MG PO DAILY 11/10/18 Tamsulosin Hcl (FLOMAX) 0.4 Mg Cap.er.24h, 0.4 MG PO BID for 30 Days, CAP 11/08/18 Ibuprofen (IBUPROFEN IB) 200 Mg Tablet, 3 TAB PO Q4-6H for 5 Days 11/08/18 Levofloxacin 500 Mg Tab (LEVAQUIN 500 MG TAB) 500 Mg Tablet, 500 MG PO DAILY for 10 Days, #10 TAB 11/08/18 Lamotrigine (LAMOTRIGINE) 300 Mg Tab.er.24, 300 MG PO 05/13/18 Cholecalciferol (Vitamin D3) (VITAMIN D) Unknown Strength Tablet, PO 01/15/17 Ascorbic Acid (VITAMIN C) 1,000 Mg Tablet, 1 TAB PO QDAY 01/15/17 Past Medical/Surgical History Past medical history of CVAs, seizures, atrial septal defect, HTN, Hypercholesterolemia, COURTNEY, GERD, UTI, BPH, back pain, glasses, alcohol use/a buse, depression/anxiety, Past surgical hstory of atrial septal defect repair, esophageal valve surgery, rotator cuff surgery, colonoscopy, great toe surgery, herniated disc, Family history of CA in mother, [place] father Reviewed Nurses Notes: Yes Hx Smoking: No Smoking Status: Never Smoker Hx Substance Use Disorder: No Hx Alcohol Use: Yes Constitutional Vital Sign - Last 24 Hours 03/07/19 03/07/19 03/07/19 03/07/19 14:14 14:24 14:24 14:30 Temp 96.8 Pulse ??? 51 Resp 16 B/P (MAP) 126/72 (90) 128/84 (99) 126/76 124/79 (94) Pulse Ox 90 O2 Delivery Room Air 03/07/19 03/07/19 03/07/19 03/07/19 14:44 14:50 15:00 15:10 Pulse 53 Resp 16 B/P (MAP) 127/69 (88) 131/70 (90) 115/68 (84) Pulse Ox 100 03/07/19 03/07/19 03/07/19 03/07/19 15:14 15:20 15:30 15:35 Pulse 50 52 Resp 9 8 B/P (MAP) 106/61 (76) 105/63 (77) Pulse Ox 99 98 03/07/19 03/07/19 03/07/1919 16:00 16:05 16:30 16:35 Pulse 52 54 Resp 13 11 B/P (MAP) 115/66 (82) 131/74 (93) Pulse Ox 96 99 03/07/19 03/07/19 03/07/19 03/07/19 17:00 17:05 17:10 17:30 Pulse 58 55 Resp 14 10 B/P (MAP) 114/66 (82) 119/107 (111) Pulse Ox 98 97 03/07/19 17:40 Pulse 57 Resp 10 Pulse Ox 97 Physical Exam General Appearance: The patient is alert, has no immediate need for airway protection and no current signs of toxicity. Eyes: Pupils equal and round no injection. Respiratory: Chest is non tender, lungs are clear to auscultation. Cardiac: regular rate and rhythm, weak heart sounds, tibialis posterior and radial pulses equal bilaterally, no carotid bruits Gastrointestinal: Abdomen is soft and non tender, no masses, bowel sounds normal. Musculoskeletal: Neck: Neck is supple and non tender. Extremities have full range of motion and are non tender. Skin: No rashes or lesions. DIFFERENTIAL DIAGNOSIS: After history and physical exam differential diagnosis was considered for stroke, subarachnoid hemorrhage, dehydration, hypoglycemia, LA, PE Medical Decision Making Data Points Result Diagram: 03/07/19 1420 03/07/19 1420 Laboratory Hematology Test 03/07/19 14:20 White Blood Count 5.7 k/uL (4.5-11.0) Red Blood Count 4.18 M/uL (4.00-5.60) Hemoglobin 13.3 g/dL (14.0-18.0) L Hematocrit 38.6 % (42.0-52.0) L Mean Corpuscular Volume 92.3 fL (80.0-96.0) Mean Corpuscular Hemoglobin 31.7 pg (26.0-33.0) Mean Corpuscular Hemoglobin Concent 34.4 g/dL (32.0-36.0) Red Cell Distribution Width 14.0 % (11.5-14.5) Platelet Count 225 K/uL (150-450) Mean Platelet Volume 7.4 fL (7.2-11.1) Neutrophils (%) (Auto) 80.8 % (39.4-72.5) H Lymphocytes (%) (Auto) 11.3 % (17.6-49.6) L Monocytes (%) (Auto) 6.1 % (4.1-12.4) Eosinophils (%) (Auto) 1.0 % (0.4-6.7) Basophils (%) (Auto) 0.8 % (0.3-1.4) Nucleated RBC Relative Count (auto) 0.0 /100WBC Neutrophils # (Auto) 4.6 K/uL (2.0-7.4) Lymphocytes # (Auto) 0.6 K/uL (1.3-3.6) L Monocytes # (Auto) 0.4 K/uL (0.3-1.0) Eosinophils # (Auto) 0.1 K/uL (0.0-0.5) Basophils # (Auto) 0.0 K/uL (0.0-0.1) Nucleated RBC Absolute Count (auto) 0.00 K/uL Chemistry Test 03/07/19 14:20 03/07/19 17:10 Sodium Level 137 mmol/L (137-145) Potassium Level 4.0 mmol/L (3.5-5.0) Chloride Level 100 mmol/L (98-107) Carbon Dioxide Level 23 mmol/L (22-30) Blood Urea Nitrogen 23 mg/dl (9-21) Creatinine 1.70 mg/dl (0.66-1.25) Glomerular Filtration Rate Calc 39.3 Random Glucose 105 mg/dl (75-110) Calcium Level 10.3 mg/dl (8.4-10.2) Total Bilirubin 1.1 mg/dl (0.2-1.3) Aspartate Amino Transf (AST/SGOT) 34 U/L (0-35) Alanine Aminotransferase (ALT/SGPT) 37 U/L (0-56) Alkaline Phosphatase 128 U/L (0-126) Total Protein 7.7 g/dl (6.3-8.2) Albumin 4.5 g/dl (3.5-5.0) Amylase Level 81 U/L (0-110) Lipase 92 U/L (23-300) Troponin I < 0.012 ng/ml Urinalysis Test 03/07/19 17:19 Urine Color Yellow Urine Clarity Cloudy Urine pH 7.0 pH (4.8-9.5) Urine Specific [place] 1.012 Urine Protein 30 mg/dL (NEGATIVE) Urine Glucose (UA) Negative mg/dL (NEGATIVE) Urine Ketones Trace mg/dL (NEGATIVE) Urine Blood Negative (NEGATIVE) Urine Nitrite Negative (NEGATIVE) Urine Bilirubin Negative (NEGATIVE) Urine Urobilinogen Negative mg/dL (0.2-1.9) Urine Leukocyte Esterase Negative (NEGATIVE) Urine RBC 14 /HPF (0-2/HPF) Urine WBC 5 /HPF (0-5/HPF) Urine Squamous Epithelial Cells Few /LPF (</=FEW) Urine Bacteria Few /HPF (NONE-FEW) Urine Hyaline Casts Few /LPF (NONE-FEW) Urine Mucus Few /HPF (NONE-FEW) Urine Yeast (Budding) Few /HPF EKG/Imaging EKG Interpretation 12 lead EKG: Rhythm: Sinus bradycardia with first AV block, ventricular rate of 57 bpm [place]: normal QRS: normal ST segments: normal Imaging Exam type: CHEST SINGLE AP History: Weakness Comparison: June 03, 2018. Findings: Again noted is minimal scarring in the left lung base. There is no evidence of acute appearing infiltrates, pleural effusions or overt pulmonary edema. The cardiac silhouette remains stable. IMPRESSION: 1. Minimal scarring in the left lung base Report Dictated By: Shania Sexton MD at 03/07/2019 3:06 PM Report E-Signed By: Shania Sexton MD at 03/07/2019 3:07 PM EXAMINATION: CT HEAD WITHOUT CONTRAST COMPARISON: 07/06/2018 and earlier. HISTORY: weakness PROCEDURE: Noncontrast CT from the vertex through the skull base. One of the following dose optimization techniques was utilized in the performance of this exam: Automated exposure control; adjustment of the mA and/or kV according to the patient's size; or use of an iterative reconstruction technique. Specific details can be referenced in the facility's radiology CT exam operational policy. FINDINGS: Brain volume: Mild global volume loss. Hemorrhage/extra-axial fluid: None. Mass effect/midline shift/edema: None. Ischemia: Mild chronic white matter change. No acute bennett-white differentiation loss. Ventricles and basal cisterns: Within normal limits. Posterior fossa: Negative. Vessels: Atherosclerosis. Calvarium, skull base, and scalp: Negative. Visualized sinuses and orbits: Within normal limits. IMPRESSION: 1. No intracranial hemorrhage or mass effect. 2. No CT findings of acute infarct. Report Dictated By: Kalia Jackson MD at 03/07/2019 2:53 PM Report E-Signed By: Kalia Jackson MD at 03/07/2019 2:58 PM ED Course/Re-evaluation ED Course Patient was admitted exam room, history and physical were obtained. Differential diagnoses were considered. On examination lungs are clear, heart was regular, abdomen soft nontender. Patient did have some shaking. An IV started, CBC, CMP, troponin, EKG, chest x-ray, CT scan of the head were done. The labs were unremarkable except patient did have an elevated creatinine of 1.7. Historically runs right around 1.2-1.3. Troponin was negative. Chest x-ray showed no acute cardiac or processes, CT scan of the head showed no findings. Urinalysis was d one which did show 4 white blood cells per high-power field. A urine culture was obtained due to the high number of white blood cells. I discussed findings with patient. We did go ahead and do a repeat troponin which was also negative. Patient did feel better after his first liter of normal saline. We did go ahead and repeat that were waiting to repeat the troponin. That was also negative. Patient did feel better after 2 L of normal saline. We'll go ahead and discharge him home at this time. He is to increase fluid intake. He states he get plenty of rest. His dizziness is a chronic problem that he is seen Jose Ledbetter for this in the past. We will go ahead and try scopolamine for that. Patient verbalized understanding and agreement with plan. Decision to Disposition Date: Mar 07, 2019 Decision to Disposition Time: 18:22 Depart Departure Latest Vital Signs Vital Signs Date Time Temp Pulse Resp B/P (MAP) Pulse Ox O2 Delivery O2 Flow Rate FiO2 03/07/19 17:40 57 10 97 03/07/19 17:30 119/107 (111) 03/07/19 14:24 96.8 Room Air Impression: Primary Impression: Dehydration Additional Impression: Dizziness Condition: Improved Disposition: HOME OR SELF-CARE Referrals: JOSE LEDBETTER DNP, [employer] (PCP) New Scripts Scopolamine (Transderm-Scop) 1 Mg/3 Day Patch.td.3 1 PATCH.72H TD Q3D PRN for DIZZINESS, #3 PATCH.72H Prov: JOANNA JORDAN 03/07/19 Patient Instructions: Dehydration (ED) Additional Instructions: Increase fluid intake until 6pm and then decrease so you won't be up all night urinating. Follow up with Jose in the next week. Return to the ER if condition worsens. We are culturing the urine because there were 5 white blood cells in your urine. We will call with the results if we need to do antibiotics. Problem Qualifiers JOANNA JORDAN Mar 07, 2019 14:23
[2019-03-07] MEDS ORDERED: ONDANSETRON 4 MG/2 ML VIAL IVP ONE (14:30)
[2019-03-07] MEDS ORDERED: NS(*) 0.9% 1000 ML BAG 1,000 ML IV ONE ×2 (14:30→15:30)
[2019-03-07 14:38] LABS: PLATELET COUNT, AUTOMATED 225 K/uL (150-450)
--- NOTE | 2019-03-07 15:07 | RADIOLOGY IMAGING REPORT ---
FACILITY: [facility] PATIENT NAME: Ricardo Sharma : 1940 MR: [id number] V: [id number] EXAM DATE: ORDERING PHYSICIAN: JOANNA JORDAN TECHNOLOGIST: [place] [facility] [place] Sh[place] : 1940 Visit/Account:[id number] Date of Sevice: 03/07/2019 EXAMINATION: CT HEAD WITHOUT CONTRAST COMPARISON: 07/06/2018 and earlier. HISTORY: weakness PROCEDURE: Noncontrast CT from the vertex through the skull base. One of the following dose optimizat ion techniques was utilized in the performance of this exam: Automated exposure control; adjustment o f the mA and/or kV according to the patient's size; or use of an iterative reconstruction technique. Specific details can be referenced in the facility's radiology CT exam operational policy. FINDINGS: Brain volume: Mild global volume loss. Hemorrhage/extra-axial fluid: None. Mass effect/midline shift/edema: None. Ischemia: Mild chronic white matter change. No acute bennett-white differentiation loss. Ventricles and basal cisterns: Within normal limits. Posterior fossa: Negative. Vessels: Atherosclerosis. Calvarium, skull base, and scalp: Negative. Visualized sinuses and orbits: Within normal limits. IMPRESSION: 1. No intracranial hemorrhage or mass effect. 2. No CT findings of acute infarct. Report Dictated By: Kalia Jacskon MD at 03/07/2019 2:53 PM Report E-Signed By: Kalia Jackson MD at 03/07/2019 2:58 PM WSN:[id number]
--- NOTE | 2019-03-07 15:18 | RADIOLOGY IMAGING REPORT ---
FACILITY: [facility] PATIENT NAME: Ricardo Sharma : 1940 MR: [id number] V: [id number] EXAM DATE: ORDERING PHYSICIAN: JOANNA JORDAN TECHNOLOGIST: Location: [facility] Patient: Ricardo Sharma : 1940 Visit/Account:[id number] Date of Sevice: 03/07/2019 Exam type: CHEST SINGLE AP History: Weakness Comparison: June 03, 2018. Findings: Again noted is minimal scarring in the left lung base. There is no evidence of acute appearing infil trates, pleural effusions or overt pulmonary edema. The cardiac silhouette remains stable. IMPRESSION: 1. Minimal scarring in the left lung base Report Dictated By: Shania Sexton MD at 03/07/2019 3:06 PM Report E-Signed By: Shania Sexton MD at 03/07/2019 3:07 PM [id number]
[2019-03-07 17:30] VITALS: BP 119/107
--- NOTE | 2019-03-07 18:09 | EKG ---
FACILITY: [facility] [place] PATIENT NAME: GET CALLEJAS : [id number] MR: [id number] V: [id number] EXAM DATE: ORDERING PHYSICIAN: JOANNA JORDAN TECHNOLOGIST: Test Reason : Blood Pressure : / mmHG Vent. Rate : 057 BPM Atrial Rate : 057 BPM P-R Int : 240 ms QRS Dur : 072 ms QT Int : 418 ms P-R-T Axes : 024 -14 027 degrees QTc Int : 406 ms Junctional rhythm Abnormal ECG When compared with ECG of 03-JUN-2018 10:37, Junctional rhythm has replaced Sinus rhythm Criteria for Septal infarct are no longer present Referred By: Confirmed By:
[2019-03-07] MEDS ORDERED: SCOP1PAT2 TD (18:28)
[2019-03-07] MEDS ORDERED: SCOPOLAMINE 1.5 MG PATCH TD ONE (18:35)
== END 2019-03-07 18:46 | disposition home or self-care (01) ==
LOC: ER 15:12
DX: E86.0 Dehydration (principal); R42 Dizziness and giddiness
CPT/HCPCS: 70450; 71045; 81001; 82150; 83690; 84484; 85025; 87088; 93005; 96361; 96374; 99284; A9270; J2405; J7030; 82040; 82247; 82310; 82374; 82435; 82565; 82947; 84075; 84132; 84155; 84295; 84450; 84460; 84520